=== PATIENT | female | born 1960 | race Hispanic/Latino ===

== ENCOUNTER 2018-02-16 18:13 | Emergency (ER) | payer OTHER | END 2018-02-16 18:41 | disposition home or self-care (01) | LOC: EDH 18:13 | DX: M54.5 Low back pain (principal); M62.838 Other muscle spasm; I10 Essential (primary) hypertension | CPT/HCPCS: 99281 ==

== ENCOUNTER 2021-11-10 11:08 | Emergency (ER) | payer OTHER ==
[~2021-11-10] VITALS: Ht 162.6 cm; Wt 63.5 kg
[2021-11-10] MEDS ORDERED: NAPR500T6 PO (11:25)
[2021-11-10] MEDS ORDERED: LISI30TA4 PO (11:28)
[2021-11-10] MEDS ORDERED: AMLO-257 PO (11:28)
[2021-11-10] MEDS ORDERED: ESCI-8 PO (11:28)
[2021-11-10 11:44] VITALS: BP 137/74
[2021-11-10 12:01] LABS: BASOPHILS % (AUTO) 0.5 % (0.0-5.0); EOSINOPHILS % (AUTO) 1.4 % (0.0-8.0); HEMATOCRIT 42.1 % (36-48); LYMPHOCYTES % (AUTO) 16.8 % (21.0-51.0); MEAN CORPUSCULAR HEMOGLOBIN 30.3 pg (27.0-33.0); MEAN CORPUSCULAR HGB CONC 33.7 g/dL (32.0-36.0); MONOCYTES % (AUTO) 6.3 % (3.0-13.0); NEUTROPHILS % (AUTO) 74.8 % (40.0-77.0); PLATELET COUNT (AUTO) 324 K/uL (130-400); RED BLOOD CELL COUNT(AUTO) 4.68 MIL/uL (4.00-5.50); RED CELL DISTRIBUTION WIDTH 12.1 % (11.0-15.5); WHITE BLOOD COUNT (AUTO) 8.4 K/uL (4.8-10.8)
[2021-11-10 12:05] LABS: APPEARANCE,URINE Turbid (CLEAR); BILIRUBIN,URINE Negative (NEGATIVE); COLOR,URINE Yellow (YELLOW); GLUCOSE, URINE (UA) Negative (NEGATIVE); KETONES,URINE Trace mg/dL (NEGATIVE); LEUKOCYTE ESTERASE ,URINE Negative (NEGATIVE); NITRATE,URINE Negative (NEGATIVE); OCCULT BLOOD,URINE Negative (NEGATIVE); PROTEIN,URINE Negative (NEGATIVE); UROBILINOGEN,URINE 0.2 mg/dL (0.2-1.0)
[2021-11-10 12:14] LABS: CREATININE 0.5 mg/dL (0.5-1.5); POTASSIUM 3.5 mmol/L (3.5-5.1)
[2021-11-10 12:18] LABS: ALBUMIN 4.2 g/dL (3.5-5.0); TOTAL PROTEIN, SERUM 7.6 g/dL (6.0-8.3)
[2021-11-10 12:26] LABS: AMORPHOUS SEDIMENT,UR Moderate /LPF (None Seen); BACTERIA,URINE Few /HPF (None Seen); RBC,URINE 0-1 /HPF (0-1); SQUAMOUS EPITHELIAL CELL,UR Rare /HPF (0-2); WBC,URINE 0-1 /HPF (0-1)
== END 2021-11-10 13:13 | disposition home or self-care (01) ==
LOC: EDH 11:08
DX: I10 Essential (primary) hypertension (principal); R53.1 Weakness; F41.9 Anxiety disorder, unspecified; F32.A Depression, unspecified; Z79.1 Long term (current) use of non-steroidal anti-inflammatories (NSAID); Z79.899 Other long term (current) drug therapy
CPT/HCPCS: 36415; 71045; 80053; 81001; 84484; 85025; 93005

== ENCOUNTER 2025-02-18 18:32 | Emergency (ER) | payer BC, OTHER ==
[~2025-02-18] VITALS: Ht 154.9 cm; Wt 59.6 kg
[~2025-02-18 18:32] MED LIST: AMLO-257 PO; ESCI-8 PO; LISI30TA4 PO; NAPR-1506 PO
--- NOTE | 2025-02-18 19:04 | ERN ---
ED Note History of Present Illness Stated Complaint: HYPERTENSION Chief Complaint: Hypertension Time Seen by MD: 18:47 Dictation: 64-year-old female presents to ER complains of elevated blood pressure at home. Denies any symptoms. Patient states she took her lisinopril at home before coming to ER. Allergies: Coded Allergies: No Known Drug Allergies (Unverified Allergy, Unknown, 11/10/21) Home Meds Reported Medications Amlodipine Besylate (Amlodipine Besylate) 5 Mg Tablet, 5 MG PO DAILY, TAB 11/10/21 Lisinopril (Lisinopril) 30 Mg Tablet, 30 MG PO DAILY, TAB 11/10/21 Escitalopram Oxalate (Escitalopram Oxalate) 10 Mg Tablet, 10 MG PO DAILY, TAB 11/10/21 Naproxen (Naproxen) 500 Mg Tablet.dr, 500 MG PO BID PRN for MODERATE PAIN (4-6), TAB 11/10/21 Past Medical History Past Medical History: Depression, Hypertension Surgical History: Tonsillectomy, BTL Family History: Negative Social History: Negative Review of System Dictation CONSTITUTIONAL: NEGATIVE FOR FEVER,CHILLS, AND WEIGHT LOSS EYES: NEGATIVE FOR INJURY, PAIN,REDNESS, AND DISCHARGE ENT: NEGATIVE FOR INJURY,PAIN OR SWELLING CARDIOVASCULAR: NEGATIVE FOR CHEST PAIN, PALPITATIONS, AND EDEMA RESPIRATORY: NEGATIVE FOR SHORTNESS OF BREATH, COUGH, WHEEZING, AND PLEURITIC CHEST PAIN ABDOMEN/GI: NEGATIVE FOR ABDOMINAL PAIN, NAUSEA, VOMITING AND DIARRHEA. BACK: NEGATIVE FOR PAIN OR INJURY : NEGATIVE FOR INJURY, BLEEDING AND DISCHARGE MS/EXTREMITY: NEGATIVE FOR INJURY AND DEFORMITY SKIN: NEGATIVE FOR RASH, AND DISCOLORATION NEURO: NEGATIVE FOR HEADACHE, WEAKNESS, NUMBNESS, TINGLING, AND SEIZURE PSYCH: NEGATIVE FOR SUICIDE IDEATION, HOMICIDAL IDEATION, AND HALLUCINATIONS ALLERGY/IMMUNOLOGY: NEGATIVE FOR HIVES, RASH, AND ALLERGIES ALL SYSTEMS NEGATIVE, EXCEPT NOTED ABOVE. 13 POINT REVIEW OF SYSTEMS ASSESSED AND ALL NEGATIVE EXCEPT FOR ABOVE. Initial Vital Sign VS Vital Signs Date Time Temp Pulse Resp B/P (MAP) Pulse Ox O2 Delivery O2 Flow Rate FiO2 02/18/25 18:34 98.2 84 18 188/96 97 Room Air 0 02/18/25 18:58 21 Physical Exam Dictation General: awake, alert, NAD Head/Face: Normocephalic, atraumatic Eyes: PERRL, EOMI, vision at baseline ENT: oral cavity clear, TMs clear, no signs of infection Neck: Trachea midline, supple, no nuchal rigidity Cardiovascular: RRR, normal no JVD Respiratory: CTAB, no respiratory distress, No rales or wheezes Abdomen: Soft, non-tender, non-distended, normal bowel sounds, no guarding or rebound. Skin: Warm, dry, normal turgor, no rash MS/Extremity: Pulses equal, no cyanosis, neurovascular intact, FROM Neuro: COAx4, GCS 15, strength 5/5, CN 2-12 intact, normal cerebellar exam, normal gait, Psych: Normal behavior, mood, and affect normal ED Course ED Course Orders Procedure Category Date Status Time Cbc With Differential LAB 02/18/25 Logged 18:54 Basic Metabolic Panel LAB 02/18/25 Logged 18:54 12 Lead Ekg Tracing- EKG 02/18/25 Logged Technical 18:54 Creatine Kinase, Total LAB 02/18/25 Logged 18:54 Troponin I High LAB 02/18/25 Logged Sensitivity 18:54 Labetalol 20mg Syg PHA 02/18/25 Complete (Trandate 20mg Syg) 19:00 Current Medications Medications (Trade) Dose Ordered Sig/Michele Route PRN Reason Start Time Stop Time Status Last Admin Dose Admin Labetalol HCl (TRANdate 20MG SYG) 5 mg ONCE ONCE IV 02/18/25 19:00 02/18/25 19:26 DC Vital Signs Date Time Temp Pulse Resp B/P (MAP) Pulse Ox O2 Delivery O2 Flow Rate FiO2 02/18/25 19:33 98.2 66 18 145/73 95 Room Air* 0 21 02/18/25 18:58 98.4 72 19 148/76 95 Room Air* 0 21 02/18/25 18:34 98.2 84 18 188/96 97 Room Air 0 Medical Decision Making MDM MDM: Differential diagnosis: Hypertensive crisis, uncontrolled HTN, Rationale: Tests considered and ordered secondary to shared decision making include: labs, ECG and radiology Previous outside records reviewed: Old ER visits. Risk of complication and/or morbidity or mortality of patient management: None Medications-Per medication reconciliation Need for hospitalization: Patient does NOT meet criteria for hospitalization. Need for emergency major/minor surgery: No There are no social concerns with this patient. Prescription drug management Prescriptions will include symptomatic care Patient's prior external medical records from other ER visits were reviewed by me as indicated. Prior testing and results from previous visits were reviewed. Prior tests were taken into account with medical decision making and resource utilization, independent historian/historians were used to obtain complete medical history. I independently interpreted the test that were performed, results were reviewed by me and considered findings on radiology if ordered. Patient blood pressure improved in ER with no medication. Patient is still asymptomatic patient will be discharged home advised to follow up with PCP for blood pressure control DX & DISP Disposition: Discharge Departure Impression: Primary Impression: Hypertension Condition: Stable Additional Instructions: Follow up with your doctor for blood pressure control. FOLLOW-UP WITH YOUR PCP IN 24-72 HOURS AND IN THE EVENT IF SYMPTOMS WORSEN OR AN EMERGENCY OVERNIGHT REPORT TO THE ED IMMEDIATELY Referrals: THOMAS CHAVARRIA DO (PCP) RUPAL MATHIAS Feb 18, 2025 19:04
[2025-02-18 19:33] VITALS: BP 145/73; PULSE 66; RESP 18; TEMP 98.2; O2SAT 95
--- NOTE | 2025-02-19 03:04 | EKG ---
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
== END 2025-02-18 19:49 | disposition home or self-care (01) ==
LOC: EDH 18:32
DX: I10 Essential (primary) hypertension (principal); F32.A Depression, unspecified; Z79.899 Other long term (current) drug therapy; Z98.51 Tubal ligation status; Z90.89 Acquired absence of other organs
CPT/HCPCS: 93005; 99284